=== PATIENT | female | born 1995 | race Caucasian/White ===

== ENCOUNTER 2020-06-19 14:06 | Outpatient (CLI) | payer OTHER ==
[~2020-06-19] VITALS: Ht 167.6 cm; Wt 98.5 kg
[2020-06-19 14:36] VITALS: BP 108/71
[2020-06-19] MEDS ORDERED: PRENTAB9 PO (15:04)
[2020-06-19 15:41] VITALS: BP 110/66
--- NOTE | 2020-06-19 15:50 | IPNPDOC ---
Text Note Date of Service The patient was seen on 06/19/20. NOTE 25 yo at 39+4 weeks gestation presented to L&D with the complaint of back pain. She denies any bleeding or leakage of fluid. She also denies feeling any actual contractions. She endorses movement. She was seen in the office today and was evaluated. She had her cervix checked twice, two hours apart, and her cervix remained unchanged at 5cm dilation. She was 5cm dilated about a week ago. Vitals - VSS, afebrile, normotensive, non tachycardic General - AAOX3, sitting up in bed, pleasant and conversant, NAD Abdomen - Gravid uterus, no fundal tenderness Pelvic exam deferred Extremities - No edema FHR tracing: Cat I with moderate variability, +accels, no decels. No contractions on toco. Ms. Ying does not appear to be in labor. We discussed management options. I offered IV and PO pain medication with hopes of her being able to rest and get relief from her pain. I could then recheck her cervix to see if she made any change, though this appears unlikely. We also discussed IOL today or awaiting for IOL on (my next day delivery professional), in hopes of allowing her body more time to potentially go into labor naturally. I did discuss with her that any IOL increases the risk of section. After extended counseling she desired to wait until for IOL. She has been added to the schedule on my call day. She declined any pain medication today. We reviewed return precautions. All patient questions answered. DO BRADY Hidalgo Fishbone, I+O VS, Caesar, I+O Vital Signs Date Time Temp Pulse Resp B/P (MAP) Pulse Ox O2 Delivery O2 Flow Rate FiO2 06/19/20 14:36 97.6 114 18 108/71 (83) SUSAN HAMPTON DO Jun 19, 2020 15:50
== END 2020-06-19 15:40 | disposition home or self-care (01) ==
LOC: UNDOADMOB 14:06 → M LDO 14:06 → M LDI 14:06 → M LDO 14:28 → UNDODISOB 14:28 → EDSTATUS 14:41 → M LDO 15:40
PROVIDERS: ATTEND Obstetrics & Gynecology
DX: O47.1 False labor at or after 37 completed weeks of gestation (principal); Z3A.39 39 weeks gestation of pregnancy
CPT/HCPCS: 59025; G0378; G0463

== ENCOUNTER 2020-06-21 19:29 | Inpatient (IN) | payer OTHER ==
[2020-06-21] VITALS (8 sets, daily range): BP systolic 116–130; BP diastolic 56–70
[~2020-06-21] VITALS: Ht 167.6 cm; Wt 98.5 kg
[~2020-06-21 19:29] MED LIST: PRENTAB9 PO
[2020-06-21] MEDS ORDERED: LR 1,000 ML IV SCH (19:51)
[2020-06-21] MEDS ORDERED: LACTATED RINGER'S 1000 ML IV ONE (20:00)
[2020-06-21 20:21] LABS: HEMATOCRIT 39.8 % (36.0-47.0); MEAN CORPUSCULAR HEMOGLOBIN 29.4 pg (27.0-33.0); MEAN CORPUSCULAR HGB CONC 32.7 g/dl (32.0-36.5); PLATELET COUNT, AUTOMATED 141 10^3/uL (150-450); RED BLOOD COUNT 4.42 10^6/uL (4.00-5.40); WHITE BLOOD COUNT 11.5 10^3/uL (4.0-10.0)
[2020-06-21] MEDS ORDERED: OXYTOCIN 30 UNITS IN 0.9% NaCl 500ML IV BAG (J2590) As Ordered ONE (20:21)
[2020-06-21 20:43] LABS: CORD GAS ABE A -1.2; CORD GAS ABE V 1.4; CORD GAS HCO3 A 21.1 MEQ/L; CORD GAS HCO3 V 23.2 MEQ/L; CORD GAS O2 SAT A 63.6 %; CORD GAS O2 SAT V 72.6 %; CORD GAS PCO2 A 28.8 mmHg; CORD GAS PCO2 V 30.1 mmHg; CORD GAS PH A 7.482 UNITS; CORD GAS PH V 7.505 UNITS; CORD GAS PO2 A 24.4 mmHg; CORD GAS PO2 V 26.8 mmHg; CORD GAS SBC A 22.7 MEQ/L; CORD GAS SBC V 24.9 MEQ/L; CORD GAS TCO2 A 21.9 MEQ/L; CORD GAS TCO2 V 24.1 MEQ/L
[2020-06-21] MEDS ORDERED: DOCUSATE SODIUM 100MG CAPSULE PO PRN (21:15)
[2020-06-21] MEDS ORDERED: BENZOCAINE 20% HEMORRHOIDAL OINTMENT 28GM TUBE TOP PRN (21:15)
[2020-06-21] MEDS ORDERED: MOM 30ML SUSPENSION UDC PO PRN (21:15)
[2020-06-21] MEDS ORDERED: OXYTOCIN DRIP 30 UNITS in IV 1 EA IV ONE (21:15)
[2020-06-21] MEDS ORDERED: OXYTOCIN INJ 10 UNITS/ML VIAL (J2590) IV ONE (21:15)
[2020-06-21] MEDS ORDERED: IBUPROFEN 600MG TAB PO PRN (21:15)
[2020-06-21] MEDS ORDERED: MEASLES,MUMPS,RUBELLA VACCINE INJ (MMR-II) (90707) SC SCH (21:15)
[2020-06-21] MEDS ORDERED: RHOGAM 300 MCG (1500 IU) INJ (J2790) IM SCH (21:15)
[2020-06-21] MEDS ORDERED: METHYLERGONOVINE MALEATE 0.2 MG TAB PO PRN (21:15)
[2020-06-21] MEDS ORDERED: ACETAMINOPHEN TAB 650MG DOSE (2X325MG) PO PRN (21:15)
--- NOTE | 2020-06-21 21:46 | HPEPDOC ---
Obstetrical History & Physical General Date of Admission Jun 21, 2020 at 19:50 Primary Care Physician: Pantera John MD History of Present Illness 24 YO IN ACTIVE LABOR AT 40 WEEKS MODERATE CONTRACTIONS NO LOSS OF FLUID NO VAGINAL BLEEDING . HISTORY IBS Chief Complaint: Contractions, term Age: 24 : 2 Term: 1 Pre-term: 0 Abortions: 0 Livin Care Care: Good Care Dating Final EDC: Jun 22, 2020 Final EDC for Daily Update: Jun 22, 2020 Final EDC by: LMP LMP: Sep 16, 2019 1st Trimester Date: Nov 30, 2019 Weeks + Days: 10.3 Estimated Date of Confinement: Jun 22, 2020 EGA at Admission: 39.6 Antepartum Course Diagnos(e)s ACTIVE LABOR AT TERM Height (inches): 66 Pre- weight (lbs.): 180 Admission Weight (lbs.): 211 Change in Weight (lbs.): 31 Past Medical History Past Obstetrical History : Past Obstetrical History: Multigravida Gestation: 40.1 Type of Delivery: Spontaneous Vaginal Del. 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 Past Medical History Surgical History: Denies/None Family History Significant Family History: No pertinent family hx Social History Marital Status: Family situation: Spouse/partner home Psychosocial History: No pertinent psych hx * Smoker: non-smoker Alcohol: Denies Drugs: denies Abuse Violence Screening Have you been hit/kicked/slapp: No Have you been sexually assault: No Imunizations Tdap status: current Influenza Status: current Allergies Coded Allergies: Antihistamines - Alkylamine (Verified Allergy, Intermediate, PT STATES IT MAKES HER HYPER SO SHE DOESN NOT TAKE THEM, 06/19/20) Medications Scheduled No.137/Iron/Folic Acd ( Vitamin Tablet) 1 Each Tablet, 1 TAB PO DAILY Physical Examination Physical Examination GENERAL: Alert and oriented times three. BREAST: . ABDOMEN: Gravid and non-tender to touch. FETUS: Is vertex (VTX) by sterile vaginal examination (SVE), fetus is vertex (VTX) by Theo. HEART RATE: Regular rate and rhythm. LUNGS: Clear to auscultation (CTA). EXTREMITIES: No edema. No clonus. Deep tendon reflexes (DTRs) NORMAL Laboratory Data 24H LABS Laboratory Tests 2 06/21/20 20:15: Nucleated Red Blood Cells % (auto) 0.0, Syphilis Serology NONREACTIVE 06/21/20 20:22: Serology Scanned Report Hepatitis B Testing 06/21/20 20:34: Cord Arterial Blood pH 7.482, Cord Arterial Blood PCO2 28.8, Cord Arterial Blood PO2 24.4, Cord Arterial Blood HCO3 21.1, Cord Arterial Blood Total CO2 21.9, Cord Arterial Blood Base Excess -1.2, Cord Arterial Base Excess (Standard 22.7, Cord Arterial Bld Oxygen Saturation 63.6, Cord Venous Blood pH 7.505, Cord Venous Blood PCO2 30.1, Cord Venous Blood PO2 26.8, Cord Venous Blood HCO3 23.2, Cord Venous Blood Total CO2 24.1, Cord Venous Base Excess (Actual) 1.4, Cord Venous Base Excess (Standard) 24.9, Cord Venous Blood Oxygen Saturation 72.6 CBC/BMP Laboratory Tests 06/21/20 20:15 Pertinent Laboratoy Data Blood Type: A+ RBC Antibody Screen: Negative HIV: Negative Hepatitis B: Negative Rapid Plasma Reagin: Nonreactive Rubella: Immune Varicella: Immune Chlamydia/Gonorrhea: Negative Group B Streptococcus: Negative Cystic Fibrosis: Negative Anatomy Ultrasound Placenta Location: Anterior Normal Anatomy: Yes Placenta Previa: No Steroid Therapy Steroid Therapy: No Vaginal Examination Dilation: 9 cm Effacement: 100% Station: 0 Cervical Consistency: Soft Cervical Position: Anterior Presentation: Cephalic presentation Assessment Variability: Moderate Accelerations: Positive Decelerations: None Tocometer Contractions: Yes Frequency: regular, every 1-3 min. Duration: greater than 60 seconds Strength: palpated as strong Assessment/Plan Assessment 24-year-old (G)2 para (P 1 at 39.6 weeks by 10.3 -week ultrasound. Pr esents to Labor and Delivery (L&D) . Plan Admit and orient. [facility] and consent. Diet: NPO Group B Streptococcus (GBS) [negative]. Labs and intravenous (IV) per unit protocol. Counseled on NEEDFOR PITOCIN AFTER DELIVERY Lactated Ringers (LR): Bolus 1000 mL, then at 125mL/hr. Anticipate [normal spontaneous delivery ()]. IMMINENT DELIVERY Labor and Delivery Counseling REVIEWED RISK OF HEMORRHAGE INFECTION PERFORATION LACERATION NEEDING REPAIR A TONIC UTERUS REQUIRING UTEROTONICS REMOTE BLOOD TRANSFUSION REMOTE HYSTERECTOMY FOR LIFE THREATENING BLEEDING EXPRESSED UNDERSTANDING Pantera John MD Jun 21, 2020:39
[2020-06-22] MEDS ORDERED: OXYTOCIN INJ 10 UNITS/ML VIAL (J2590) As Ordered ONE (04:01)
[2020-06-22] MEDS: ACETAMINOPHEN 500 MG TAB PO PRN ×3 (06:01→21:26)
[2020-06-22 06:11] VITALS: BP 107/61
--- NOTE | 2020-06-22 07:21 | IPN ---
PROGRESS NOTE DATE: 06/22/2020 SUBJECTIVE: This lady is a 25-year-old 2 now para 2 admitted in spontaneous labor at 40 weeks of gestation, had a spontaneous vaginal delivery, female infant weighing 8 pounds, 4 ounces, 3730 grams, Apgars of 8 and 9 at 1 and 5 minutes respectfully. The cord was around the neck x1 loose. Arterial pH was 7.48. Base excess -1.2, venous pH 7.50, base excess is 1.4. She was COVID negative, had no intercurrent issues. We discussed phlebitis, cystitis, mastitis, endometritis, and cellulitis, diet, exercise, pain management, perineal, breast and wound care. The patient has picked up her meds at [facility]. She will make a six week check at [facility]. She is uncertain at the present time what method of control she would like and this will be discussed at her checkup at six weeks. She would like to go home this evening. The baby will not be 24 hours until 8:40 this evening. The discharge will be delayed until the decision by Pediatrics in order to see if the baby will go home, otherwise mother and baby will go home 24 hours from now. PHYSICAL EXAMINATION: The rest of the examination is unremarkable. Normocephalic, atraumatic. Neck: Full range of motion. Pupils equal and reactive to light. Distal pulses are symmetric. No evidence of DVT, PE or superficial phlebitis. Chest is clear bilaterally to bases. No wheezes or rhonchi. No CVA tenderness. Abdomen was soft. Four quadrant bowel sounds are noted. The perineum is intact. Her blood pressure today is 107/61, respirations are 17. Pulse is 74 and temperature is 98.0. Her admitting hemoglobin was 13.0, hematocrit 39.8 and platelets are 141,000. PLAN: Probably discharge tomorrow morning. Follow-up six weeks at [facility]. All questions were answered, a 20 minute discussion. cc: [facility]
[2020-06-22 08:28] LABS: HEMATOCRIT 36.3 % (36.0-47.0); HEMOGLOBIN 11.4 g/dl (12.0-15.5); MEAN CORPUSCULAR HEMOGLOBIN 28.9 pg (27.0-33.0); MEAN CORPUSCULAR HGB CONC 31.4 g/dl (32.0-36.5); MEAN CORPUSCULAR VOLUME 91.9 fl (80.0-96.0); PLATELET COUNT, AUTOMATED 137 10^3/uL (150-450); RED BLOOD COUNT 3.95 10^6/uL (4.00-5.40); WHITE BLOOD COUNT 12.2 10^3/uL (4.0-10.0)
[2020-06-22] MEDS: PRENATAL VITAMINS CHEWABLE TABLET PO SCH (09:00)
[2020-06-22] MEDS: IBUPROFEN 800 MG TAB PO PRN ×2 (09:00)
--- NOTE | 2020-06-22 10:55 | DN ---
DELIVERY NOTE DATE OF DELIVERY: 06/21/2020 GENDER: Female. APGARS: 8 and 9 at one and five minutes respectively. DESCRIPTION OF DELIVERY: This lady is a 25-year-old 2, para 1, who was admitted in spontaneous labor at 40 weeks of gestation. On admission, she was found to be 8-9 cm, 100% effaced, occiput anterior. She had a spontaneous precipitous delivery of a live female infant weighing 8 pounds 4 ounces (3730 grams). Apgars 8 and 9 at one and five minutes respectively. Cord around the neck x1 loose. Arterial pH 7.48, base excess -1.2; venous pH 7.50, base excess 1.4. Placenta delivered spontaneously thereafter with three-vessel cord with membranes and tissues intact. Uterus contracted well under Pitocin. Anterior, posterior, and lateral gannon were intact. Cervix showed a large bruise on the anterior lip from pushing on the cervix that had retracted well after delivery. Sphincter was intact and the rectus muscles were intact. Uterus continued to be well contracted under Pitocin. The patient and baby tolerating procedure well.
[2020-06-22 18:00] VITALS: BP 112/69
[2020-06-23 06:00] VITALS: BP 110/66
[2020-06-23] MEDS ORDERED: ACET-683 PO (08:00)
[2020-06-23] MEDS ORDERED: IBUP80TA PO (08:00)
--- NOTE | 2020-06-23 08:04 | DS.PDOC ---
Discharge Summary General Date of Admission Jun 21, 2020 at 19:50 Date of Discharge Jun 23, 2020 Discharge Summary HOSPITAL COURSE: Ms. Ying is a 25 yo G2 now P2 who underwent an uncomplicated on 21Jun2020 after being admitted for active labor. Her course has been unremarkable. On her day of discharge she met all appropriate discharge criteria. She was ambulating, voiding, tolerating a regular diet, and had minimal lochia. DISCHARGE MEDICATIONS: Please see below. ALLERGIES: Please see below. PHYSICAL EXAMINATION ON DISCHARGE: VITAL SIGNS: Please see below. GENERAL: AAOX3, NAD, pleasant and conversant ABDOMINAL EXAMINATION: Fundus firm at U-2. No fundal tenderness EXTREMITIES: No edema PSYCHIATRIC EXAMINATION: Affect appropriate LABORATORY DATA: Please see below. ACTIVITY: Pelvic rest for 6 weeks DIET: Regular diet DISCHARGE PLAN: Discharge home DISPOSITION: Discharge home on 23Jun2020. DISCHARGE INSTRUCTIONS: 1. Pelvic rest for 6 weeks ITEMS TO FOLLOWUP ON ON OUTPATIENT: 1. appointment in 6-8 weeks DISCHARGE CONDITION: Stable. TIME SPENT ON DISCHARGE: Greater than 20 minutes. Vital Signs/I&Os Vital Signs Date Time Temp Pulse Resp B/P (MAP) Pulse Ox O2 Delivery O2 Flow Rate FiO2 06/23/20 06:00 97.8 60 17 110/66 (81) 97 Room Air Discharge Medications Scheduled No.137/Iron/Folic Acd ( Vitamin Tablet) 1 Each Tablet, 1 TAB PO DAILY, (Reported) Scheduled PRN Acetaminophen (Acetaminophen) 500 Mg Tablet, 1,000 MG PO Q6HP PRN for PAIN LEVEL 6-10 Ibuprofen (Ibuprofen) 800 Mg Tablet, 800 MG PO Q8HP PRN for PAIN LEVEL 6-10 Allergies Coded Allergies: Antihistamines - Alkylamine (Verified Allergy, Intermediate, PT STATES IT MAKES HER HYPER SO SHE DOESN NOT TAKE THEM, 06/19/20) SUSAN HAMPTON DO Jun 23, 2020 08:04
[2020-06-23] MEDS: PRENATAL VITAMINS CHEWABLE TABLET PO SCH (09:00)
== END 2020-06-23 13:50 | disposition home or self-care (01) | DRG 807 ==
LOC: M LDO 19:29 → M LDI 19:50 → M OBS 23:01
PROVIDERS: ADMIT Obstetrics & Gynecology; ATTEND Obstetrics & Gynecology
PROC: 10E0XZZ Delivery of Products of Conception, External Approach (ICD-10-PCS; principal; 2020-06-21)
DX: O62.3 Precipitate labor (principal); Z37.0 Single live birth; Z3A.40 40 weeks gestation of pregnancy; O69.81X0 Labor and delivery complicated by cord around neck, without compression, not applicable or unspecified